=== PATIENT | male | born 2000 | race Caucasian/White ===

== ENCOUNTER → 2021-05-29 | Outpatient (CLI) | payer BC ==
--- NOTE | 2021-05-29 11:55 | Diagnostic Imaging Report ---
INDICATION: Thrombocytopenia, left upper quadrant abdominal pain. History of splenomegaly. TECHNIQUE: Multiple real-time mohamud scale sonographic images of the abdomen. CORRELATION STUDY: 05/13/2014 FINDINGS: LIVER: Normal echotexture within the visualized portions of the liver. There is normal, hepatopedal direction of flow within the main portal vein. Liver length is 16 cm. GALLBLADDER: No shadowing gallstones or pericholecystic fluid. COMMON BILE DUCT: Largely obscured, not visualized. No suggestion for overt bile duct dilatation. PANCREAS: Largely obscured. SPLEEN: Borderline size, 12.6 x 5.3 x 5.5 cm. ABDOMINAL AORTA: Unremarkable. INFERIOR VENA CAVA: Limited in visualization. RIGHT KIDNEY: 11.8 x 5.2 x 4.7 cm. Unremarkable. LEFT KIDNEY: 11.7 x 5.3 x 4.4 cm. Unremarkable. OTHER: None. IMPRESSION: 1. Borderline, but relatively stable in size spleen. Dictated by: Dictated on workstation # [id number]
== END ==
LOC: RAD 09:15
PROVIDERS: ATTEND Internal Medicine
DX: D69.6 Thrombocytopenia, unspecified (principal); R10.12 Left upper quadrant pain; Z86.2 Personal history of diseases of the blood and blood-forming organs and certain disorders involving the immune mechanism
CPT/HCPCS: 76700